=== PATIENT | female | born 1945 | race Asian ===

== ENCOUNTER 2016-06-02 14:24 | Outpatient (CLI) | payer BC | END 2016-06-02 22:07 | disposition home or self-care (01) | LOC: RAD 14:24 | DX: R07.89 Other chest pain (principal); M54.89 Other dorsalgia ==

== ENCOUNTER 2016-09-01 09:52 | Outpatient (CLI) | payer BC | END 2016-09-01 12:00 | disposition home or self-care (01) | LOC: US 09:52 | DX: R59.1 Generalized enlarged lymph nodes (principal); R05 Cough ==

== ENCOUNTER 2017-12-02 13:55 | Emergency (ER) | payer BC ==
[~2017-12-02] VITALS: Ht 157.5 cm; Wt 73.0 kg
[2017-12-02 14:38] LABS: PLATELET COUNT 289 K/uL (152-353)
[2017-12-02 14:46] LABS: POTASSIUM 4.6 mmol/L (3.6-5.2)
[2017-12-02 16:08] VITALS: BP 137/71; TEMP 98.3
== END 2017-12-02 16:08 | disposition home or self-care (01) ==
LOC: ED 13:55
PROVIDERS: Emergency Medicine
DX: E11.65 Type 2 diabetes mellitus with hyperglycemia (principal); I10 Essential (primary) hypertension; R51 Headache; W18.39XA Other fall on same level, initial encounter; Y93.89 Activity, other specified; Y92.89 Other specified places as the place of occurrence of the external cause
CPT/HCPCS: 36415; 80053; 81000; 81002; 82962; 85027; 93005; 96360; 99284

== ENCOUNTER 2019-06-18 12:09 | Outpatient (CLI) | payer BC | END 2019-06-18 22:00 | disposition home or self-care (01) | LOC: RAD 12:09 | DX: M25.551 Pain in right hip (principal); M25.512 Pain in left shoulder ==

== ENCOUNTER 2020-05-07 07:40 | Outpatient (CLI) | payer BC, OTHER | END 2020-05-07 21:08 | disposition home or self-care (01) | LOC: LAB 07:40 | PROVIDERS: ATTEND Internal Medicine | DX: R11.0 Nausea (principal); R11.10 Vomiting, unspecified; Z11.59 Encounter for screening for other viral diseases | CPT/HCPCS: 87635; G2023; U0003 ==

== ENCOUNTER 2021-04-15 11:10 | Outpatient (CLI) | payer BC, OTHER | END 2021-04-15 19:26 | disposition home or self-care (01) | LOC: INF 11:10 | PROVIDERS: ATTEND Internal Medicine Endocrinology, Diabetes & Metabolism | DX: Z23 Encounter for immunization (principal) ==